=== PATIENT | female | born 1990 | race Caucasian/White ===

== ENCOUNTER 2016-11-03 14:14 | Emergency (ER) | payer OTHER ==
[~2016-11-03] VITALS: Ht 165.1 cm; Wt 85.4 kg
[~2016-11-03 14:14] MED LIST: AMOXICILLIN875 MG PO; DOXYCYCLINE HY100 MG PO; FLEXERIL10 MG PO; LORTAB 5-325 M1 EACH PO; MOTRIN600 MG PO; MOTRIN800 MG PO; NAPROSYN375 MG PO; NAPROSYN500 MG PO; NOHOMEMEDS; PEN-VEE K,VEET500 MG PO; PERCOCET 5/31 TABLET PO; TRAMADOL HCL50 MG PO; ULTRAM50 MG PO
[2016-11-03 14:26] VITALS: BP 134/96
== END 2016-11-03 17:15 | disposition left against medical advice (07) ==
LOC: EME 14:14
DX: R23.8 Other skin changes (principal); Z53.21 Procedure and treatment not carried out due to patient leaving prior to being seen by health care provider

== ENCOUNTER 2016-11-24 04:59 | Emergency (ER) | payer OTHER ==
[~2016-11-24] VITALS: Ht 165.1 cm; Wt 86.9 kg
[2016-11-24] MEDS ORDERED: ANTIFUNGAL30 GM TP (05:23)
[2016-11-24 05:28] VITALS: BP 140/100
[2016-11-24 05:40] LABS: POINT-OF-CARE METER ID UU14100415
== END 2016-11-24 05:28 | disposition home or self-care (01) ==
LOC: EME 04:59
PROVIDERS: Nurse Practitioner Family
DX: B35.3 Tinea pedis (principal); I10 Essential (primary) hypertension; M79.671 Pain in right foot
CPT/HCPCS: 82948; 99281; 99283

== ENCOUNTER 2016-12-12 17:23 | Emergency (ER) | payer OTHER ==
[~2016-12-12] VITALS: Ht 165.1 cm; Wt 86.0 kg
[~2016-12-12 17:23] MED LIST changes: +ANTIFUNGAL30 GM TP
[2016-12-12 18:33] LABS: BASOPHIL COUNT 0.1 K/uL (0-0.1); EOSINOPHIL (%) 4.8 % (0-5); EOSINOPHIL COUNT 0.5 K/uL (0-0.3); HEMATOCRIT 42.6 % (36.0-46.0); IMMATURE GRANULOCYTE (%) 0.3 % (0.0-0.7); LYMPHOCYTE COUNT 2.8 K/uL (1.0-2.8); MCH 30.2 PG (29.0-34.0); MCHC 34.5 G/DL (30.0-36.0); MCV 87.7 FL (83-99); MEAN PLAT.VOLUME 10.6 uM^3 (9.5-12.4); MONOCYTE (%) 6.8 % (3-12); MONOCYTE COUNT 0.7 K/uL (0-0.8); NEUTROPHIL (%) 59.7 % (45-76); PLATELET COUNT 174 K/uL (156-360); RBC DIS.WIDTH-CV 12.2 % (11.8-14.6); RBC DIS.WIDTH-SD 39.2 % (39-53); RED BLOOD COUNT 4.86 M/uL (3.80-5.20); WHITE BLOOD COUNT 10.1 K/uL (4.1-10.2)
[2016-12-12 18:41] LABS: CHLORIDE 105 mEq/L (99-109); POTASSIUM 3.8 mEq/L (3.7-5.4); SODIUM 138 mEq/L (136-147)
[2016-12-12 18:44] LABS: GLUCOSE 78 mg/dL (70-99)
[2016-12-12 18:45] LABS: ANION GAP 8 MEQ/L (2-14)
[2016-12-12 18:46] LABS: TOTAL BILIRUBIN 0.5 mg/dL (0.0-1.0)
[2016-12-12 18:47] LABS: ALKALINE PHOSPHATASE 53 IU/L (3-129); GFR ESTIMATE (CALCULATED) > 59 mL/min/
[2016-12-12 18:48] LABS: UREA NITROGEN (BUN) 9 mg/dL (9-23)
[2016-12-12 19:07] LABS: INTERNAL CONTROL VALID? YES; MONOSPOT (MONONUCLEOSIS SEROL) NEGATIVE
[2016-12-12] MEDS ORDERED: PREDNISONE50 MG PO (20:14)
[2016-12-12] MEDS ORDERED: HYCET 7.5 MG-3473 ML PO (20:15)
[2016-12-12] MEDS ORDERED: CLEOCIN300 MG PO (20:15)
[2016-12-12 20:18] VITALS: BP 123/68
== END 2016-12-12 20:39 | disposition home or self-care (01) ==
LOC: EME 17:23
PROVIDERS: Emergency Medicine
DX: J02.9 Acute pharyngitis, unspecified (principal); J32.3 Chronic sphenoidal sinusitis
CPT/HCPCS: 70491; 80053; 85025; 86308; 99281; 99285; J1100; J1885; J7040

== ENCOUNTER 2016-12-13 22:05 | Emergency (ER) | payer OTHER ==
[~2016-12-13] VITALS: Ht 165.1 cm; Wt 87.3 kg
[~2016-12-13 22:05] MED LIST changes: +CLEOCIN300 MG PO; +HYCET 7.5 MG-3473 ML PO; +PREDNISONE50 MG PO
[2016-12-13 22:56] LABS: HEMATOCRIT 38.5 % (36.0-46.0); MCH 30.2 PG (29.0-34.0); MCHC 34.3 G/DL (30.0-36.0); MCV 88.1 FL (83-99); MEAN PLAT.VOLUME 10.2 uM^3 (9.5-12.4); PLATELET COUNT 199 K/uL (156-360); RBC DIS.WIDTH-CV 12.4 % (11.8-14.6); RBC DIS.WIDTH-SD 40.5 % (39-53); RED BLOOD COUNT 4.37 M/uL (3.80-5.20); WHITE BLOOD COUNT 17.8 K/uL (4.1-10.2)
[2016-12-13 23:23] LABS: ADD MIUA? YES; BILIRUBIN NEGATIVE; BLOOD LARGE; COLOR YELLOW ((YELLOW)); GLUCOSE (STRIP) NEGATIVE; KETONES NEGATIVE; LEUKOCYTES NEGATIVE; NITRITE NEGATIVE; PROTEIN (STRIP) 100; SPECIFIC GRAVITY 1.029 (1.000-1.030); UROBILINOGEN 0.2 MG/DL (0.2-1.0)
[2016-12-13 23:33] LABS: BACTERIA RARE /HPF; EPITHELIAL CELLS 2+ /HPF; MUCUS 2+ /LPF; RED BLOOD CELLS TNTC /HPF (0-5); UCUL ADDED? NO; WHITE BLOOD CELLS 0-5 /HPF (0-5)
[2016-12-14 02:14] VITALS: BP 131/86
== END 2016-12-14 02:18 | disposition home or self-care (01) ==
LOC: EME 22:05
DX: R10.31 Right lower quadrant pain (principal); N93.9 Abnormal uterine and vaginal bleeding, unspecified; N83.202 Unspecified ovarian cyst, left side; F11.20 Opioid dependence, uncomplicated; F17.200 Nicotine dependence, unspecified, uncomplicated
CPT/HCPCS: 74176; 81003; 84702; 85027; 86850; 86900; 86901; 99281; 99285; J1885; J7030

== ENCOUNTER 2016-12-19 00:14 | Emergency (ER) | payer OTHER ==
[~2016-12-19] VITALS: Ht 165.1 cm; Wt 85.8 kg
[2016-12-19 02:37] LABS: BASOPHIL COUNT 0.1 K/uL (0-0.1); EOSINOPHIL COUNT 0.5 K/uL (0-0.3); HEMATOCRIT 38.2 % (36.0-46.0); IMMATURE GRANULOCYTE (%) 0.2 % (0.0-0.7); INSTRUMENT ABS NEUTROPHIL CT 4.2 K/uL; MCH 29.8 PG (29.0-34.0); MCV 87.6 FL (83-99); MEAN PLAT.VOLUME 10.2 uM^3 (9.5-12.4); MONOCYTE (%) 8.2 % (3-12); MONOCYTE COUNT 0.7 K/uL (0-0.8); NEUTROPHIL (%) 49.6 % (45-76); NEUTROPHIL COUNT 4.2 K/uL (1.8-6.4); PLATELET COUNT 176 K/uL (156-360); RBC DIS.WIDTH-CV 11.9 % (11.8-14.6); RBC DIS.WIDTH-SD 38.8 % (39-53); RED BLOOD COUNT 4.36 M/uL (3.80-5.20)
[2016-12-19 02:38] LABS: WHITE BLOOD COUNT 8.5 K/uL (4.1-10.2)
[2016-12-19 02:45] LABS: CHLORIDE 104 mEq/L (99-109); POTASSIUM 3.6 mEq/L (3.7-5.4); SODIUM 137 mEq/L (136-147)
[2016-12-19 02:46] LABS: GLUCOSE 95 mg/dL (70-99)
[2016-12-19 02:48] LABS: ANION GAP 7 MEQ/L (2-14)
[2016-12-19 02:50] LABS: GFR ESTIMATE (CALCULATED) > 59 mL/min/
[2016-12-19 02:51] LABS: UREA NITROGEN (BUN) 11 mg/dL (9-23)
[2016-12-19] MEDS ORDERED: MOUTH SORE15 ML MM (04:29)
[2016-12-19 04:41] VITALS: BP 124/81
== END 2016-12-19 04:42 | disposition home or self-care (01) ==
LOC: EME 00:14
PROVIDERS: Emergency Medicine
DX: J06.9 Acute upper respiratory infection, unspecified (principal); F17.200 Nicotine dependence, unspecified, uncomplicated
CPT/HCPCS: 71020; 80048; 85025; 93005; 99281; 99284; J1100; J1885

== ENCOUNTER 2017-04-17 01:49 | Emergency (ER) | payer OTHER ==
[~2017-04-17] VITALS: Ht 165.1 cm; Wt 79.3 kg
[~2017-04-17 01:49] MED LIST changes: +MOUTH SORE15 ML MM
[2017-04-17 02:30] LABS: ADD MIUA? YES; BILIRUBIN NEGATIVE; BLOOD NEGATIVE; COLOR AMBER ((YELLOW)); GLUCOSE (STRIP) NEGATIVE; KETONES 5; LEUKOCYTES MODERATE; NITRITE NEGATIVE; PROTEIN (STRIP) 30; SPECIFIC GRAVITY 1.024 (1.000-1.030)
[2017-04-17 02:42] LABS: HEMATOCRIT 38.1 % (36.0-46.0); MCH 29.1 PG (29.0-34.0); MCHC 34.6 G/DL (30.0-36.0); MCV 83.9 FL (83-99); MEAN PLAT.VOLUME 10.4 uM^3 (9.5-12.4); PLATELET COUNT 160 K/uL (156-360); RBC DIS.WIDTH-CV 11.6 % (11.8-14.6); RBC DIS.WIDTH-SD 35.4 % (39-53); RED BLOOD COUNT 4.54 M/uL (3.80-5.20); WHITE BLOOD COUNT 10.2 K/uL (4.1-10.2)
[2017-04-17 02:45] LABS: CHLORIDE 106 mEq/L (99-109); POTASSIUM 3.4 mEq/L (3.7-5.4); SODIUM 139 mEq/L (136-147)
[2017-04-17 02:47] LABS: GLUCOSE 84 mg/dL (70-99)
[2017-04-17 02:48] LABS: ANION GAP 10 MEQ/L (2-14)
[2017-04-17 02:50] LABS: BACTERIA 1+ /HPF; CASTS NONE SEEN /LPF; EPITHELIAL CELLS 3+ /HPF; MUCUS 4+ /LPF; RED BLOOD CELLS 0-5 /HPF (0-5); UCUL ADDED? NO
[2017-04-17 02:51] LABS: GFR ESTIMATE (CALCULATED) > 59 mL/min/; UREA NITROGEN (BUN) 7 mg/dL (9-23)
[2017-04-17 02:51] LABS: CRYSTALS NONE SEEN
[2017-04-17 02:59] LABS: QUANTITATIVE HCG 14898.1 MIU/ML
[2017-04-17 03:19] LABS: TOTAL BILIRUBIN 1.1 mg/dL (0.0-1.0)
[2017-04-17 03:20] LABS: ALKALINE PHOSPHATASE 52 IU/L (3-129)
[2017-04-17 03:22] LABS: DIRECT BILIRUBIN 0.4 mg/dL (0.0-0.3)
[2017-04-17 03:23] LABS: LIPASE 12 U/L (1.0-51.0)
[2017-04-17 04:21] VITALS: BP 122/77
== END 2017-04-17 04:23 | disposition home or self-care (01) ==
LOC: EME → EDBD 01:49 → EME 01:49
PROVIDERS: Emergency Medicine
DX: O99.89 Other specified diseases and conditions complicating pregnancy, childbirth and the puerperium (principal); E86.0 Dehydration; O21.9 Vomiting of pregnancy, unspecified; R19.7 Diarrhea, unspecified; Z3A.10 10 weeks gestation of pregnancy; G89.29 Other chronic pain; O99.331 Smoking (tobacco) complicating pregnancy, first trimester; F17.200 Nicotine dependence, unspecified, uncomplicated; Z90.49 Acquired absence of other specified parts of digestive tract
CPT/HCPCS: 76801; 80048; 80076; 81003; 83690; 84702; 85027; 87086; 99281; 99284; J2405; J7030

== ENCOUNTER 2017-04-26 21:28 | Emergency (ER) | payer OTHER ==
[~2017-04-26] VITALS: Ht 165.1 cm; Wt 80.3 kg
[2017-04-26] MEDS ORDERED: ZOFRAN ODT4 MG PO (23:09)
[2017-04-26 23:23] VITALS: BP 153/99
== END 2017-04-26 23:23 | disposition home or self-care (01) ==
LOC: EME 21:28
DX: O21.9 Vomiting of pregnancy, unspecified (principal); O99.321 Drug use complicating pregnancy, first trimester; F11.23 Opioid dependence with withdrawal; Z3A.08 8 weeks gestation of pregnancy; Z87.891 Personal history of nicotine dependence
CPT/HCPCS: 99281; 99283

== ENCOUNTER 2017-05-04 12:58 | Emergency (ER) | payer OTHER ==
[~2017-05-04] VITALS: Ht 165.1 cm; Wt 79.7 kg
[~2017-05-04 12:58] MED LIST changes: +ZOFRAN ODT4 MG PO
[2017-05-04 14:07] LABS: HEMATOCRIT 39.3 % (36.0-46.0); MCH 29.3 PG (29.0-34.0); MCHC 35.4 G/DL (30.0-36.0); MCV 82.9 FL (83-99); MEAN PLAT.VOLUME 10.7 uM^3 (9.5-12.4); PLATELET COUNT 179 K/uL (156-360); RED BLOOD COUNT 4.74 M/uL (3.80-5.20); WHITE BLOOD COUNT 12.2 K/uL (4.1-10.2)
[2017-05-04 15:53] LABS: ADD MIUA? YES; BILIRUBIN NEGATIVE; BLOOD NEGATIVE; COLOR YELLOW ((YELLOW)); GLUCOSE (STRIP) NEGATIVE; KETONES NEGATIVE; LEUKOCYTES SMALL; NITRITE NEGATIVE; PROTEIN (STRIP) 30; SPECIFIC GRAVITY 1.017 (1.000-1.030); UROBILINOGEN 0.2 MG/DL (0.2-1.0)
[2017-05-04 15:59] LABS: BACTERIA RARE /HPF; EPITHELIAL CELLS 1+ /HPF; GRANULAR CASTS 0-5 /LPF; HYALINE CASTS 0-5 /LPF; MUCUS 4+ /LPF; RED BLOOD CELLS 0-5 /HPF (0-5); UCUL ADDED? NO; WHITE BLOOD CELLS 0-5 /HPF (0-5)
[2017-05-04] MEDS ORDERED: PHENERGAN12.5 MG PR (16:41)
[2017-05-04] MEDS ORDERED: ZOFRAN4 MG PO (16:41)
[2017-05-04 17:23] VITALS: BP 113/74
[2017-05-13] MEDS ORDERED: VITAMIN B-625 MG PO (14:40)
[2017-05-13] MEDS ORDERED: SLEEP AID25 M1 PO (14:42)
== END 2017-05-04 17:24 | disposition home or self-care (01) ==
LOC: EME 12:58 → EXP 12:58
DX: O20.0 Threatened abortion (principal); O21.9 Vomiting of pregnancy, unspecified; Z3A.08 8 weeks gestation of pregnancy; Z87.891 Personal history of nicotine dependence
CPT/HCPCS: 76801; 81003; 84702; 85027; 87086; 87493; 87506; 99281; 99284; J2405; J7030

== ENCOUNTER → 2017-05-13 | Outpatient (CLI) | payer OTHER ==
[~2017-05-13] VITALS: Ht 165.1 cm; Wt 79.5 kg
[~2017-05-13] MED LIST changes: +PHENERGAN12.5 MG PR; +SLEEP AID25 M1 PO; +VITAMIN B-625 MG PO; +ZOFRAN4 MG PO
[2017-05-13 14:44] VITALS: BP 145/81
== END | disposition home or self-care (01) ==
LOC: IVINF 05-12 16:30
DX: Z31.82 Encounter for Rh incompatibility status (principal); O20.9 Hemorrhage in early pregnancy, unspecified; Z3A.00 Weeks of gestation of pregnancy not specified
CPT/HCPCS: 96372; J2790

== ENCOUNTER 2017-06-10 11:14 | Emergency (ER) | payer OTHER ==
[~2017-06-10] VITALS: Ht 165.1 cm; Wt 77.2 kg
[2017-06-10 11:48] LABS: HEMATOCRIT 39.3 % (36.0-46.0); MCH 29.3 PG (29.0-34.0); MCHC 34.6 G/DL (30.0-36.0); MCV 84.7 FL (83-99); MEAN PLAT.VOLUME 10.2 uM^3 (9.5-12.4); PLATELET COUNT 180 K/uL (156-360); RBC DIS.WIDTH-CV 13.7 % (11.8-14.6); RBC DIS.WIDTH-SD 42.1 % (39-53); RED BLOOD COUNT 4.64 M/uL (3.80-5.20); WHITE BLOOD COUNT 13.1 K/uL (4.1-10.2)
[2017-06-10 11:57] LABS: CHLORIDE 106 mEq/L (99-109); POTASSIUM 3.7 mEq/L (3.7-5.4); SODIUM 137 mEq/L (136-147)
[2017-06-10 11:59] LABS: GLUCOSE 101 mg/dL (70-99)
[2017-06-10 12:00] LABS: ANION GAP 11 MEQ/L (2-14)
[2017-06-10 12:01] LABS: TOTAL BILIRUBIN 0.6 mg/dL (0.0-1.0)
[2017-06-10 12:02] LABS: ALKALINE PHOSPHATASE 48 IU/L (3-129)
[2017-06-10 12:03] LABS: GFR ESTIMATE (CALCULATED) > 59 mL/min/
[2017-06-10 12:04] LABS: UREA NITROGEN (BUN) 8 mg/dL (9-23)
[2017-06-10 12:34] LABS: QUANTITATIVE HCG 22577.3 MIU/ML
[2017-06-10] MEDS ORDERED: PHENERGAN12.5 MG PR (14:59)
[2017-06-10 15:16] VITALS: BP 129/80
== END 2017-06-10 15:18 | disposition home or self-care (01) ==
LOC: EME 11:14
DX: O21.9 Vomiting of pregnancy, unspecified (principal); O99.321 Drug use complicating pregnancy, first trimester; F11.20 Opioid dependence, uncomplicated; Z3A.13 13 weeks gestation of pregnancy; O99.332 Smoking (tobacco) complicating pregnancy, second trimester; F17.200 Nicotine dependence, unspecified, uncomplicated
CPT/HCPCS: 76801; 80053; 81003; 84702; 85027; 99281; 99284; J2550

== ENCOUNTER 2017-07-11 19:34 | Outpatient (CLI) | payer OTHER ==
[~2017-07-11] VITALS: Ht 165.1 cm; Wt 75.3 kg
[2017-07-11 20:08] VITALS: BP 116/71
[2017-07-11 21:00] LABS: ADD MIUA? YES; BILIRUBIN NEGATIVE; BLOOD NEGATIVE; COLOR AMBER ((YELLOW)); GLUCOSE (STRIP) NEGATIVE; KETONES NEGATIVE; LEUKOCYTES MODERATE; NITRITE NEGATIVE; PROTEIN (STRIP) 100; SPECIFIC GRAVITY 1.024 (1.000-1.030)
[2017-07-11 21:14] LABS: BACTERIA 3+ /HPF; EPITHELIAL CELLS 1+ /HPF; MUCUS 3+ /LPF; RED BLOOD CELLS 0-5 /HPF (0-5); UCUL ADDED? YES
[2017-07-11 21:16] LABS: FINE GRANULAR CASTS 0-5 /LPF
[2017-07-11 21:23] LABS: AMPHETAMINE NEGATIVE (500 ng/mL); BARBITURATES NEGATIVE (200 ng/mL); BENZODIAZEPINES NEGATIVE (150 ng/mL); COCAINE NEGATIVE (150 ng/mL); INTERNAL CONTROLS VALID? YES; METHADONE NEGATIVE (200 ng/mL); METHAMPHETAMINE NEGATIVE (500 ng/mL); OPIATES (MORPHINE) NEGATIVE (100 ng/mL); OXYCODONE NEGATIVE (100 ng/mL); PHENCYCLIDINE NEGATIVE (25 ng/mL); PROPOXYPHENE NEGATIVE (300 ng/mL); THC CANNABINOIDS NEGATIVE (50 ng/mL); TRICYCLIC ANTIDEPRESSANTS NEGATIVE (300 ng/mL)
== END 2017-07-11 23:12 | disposition home or self-care (01) ==
LOC: LDRP-OP → 2WEST 19:36 → LDRP-OP 01-07 11:36
PROVIDERS: Advanced Practice Midwife
DX: O26.899 Other specified pregnancy related conditions, unspecified trimester (principal); R10.9 Unspecified abdominal pain; Z3A.00 Weeks of gestation of pregnancy not specified
CPT/HCPCS: 59025; 76805; 81003; 85460; 87086; G0378

== ENCOUNTER 2017-08-24 09:00 | Outpatient (CLI) | payer OTHER ==
[2017-08-24 09:17] VITALS: BP 102/65
[2017-08-24 10:07] LABS: EOSINOPHIL COUNT 0.4 K/uL (0-0.3); HEMATOCRIT 32.1 % (36.0-46.0); IMMATURE GRANULOCYTE (%) 0.5 % (0.0-0.7); IMMATURE GRANULOCYTE COUNT 0.1 K/uL; INSTRUMENT ABS NEUTROPHIL CT 7.9 K/uL; MCH 28.7 PG (29.0-34.0); MCHC 33.6 G/DL (30.0-36.0); MCV 85.4 FL (83-99); MEAN PLAT.VOLUME 10.4 uM^3 (9.5-12.4); MONOCYTE (%) 5.8 % (3-12); MONOCYTE COUNT 0.6 K/uL (0-0.8); NEUTROPHIL (%) 70.9 % (45-76); NEUTROPHIL COUNT 7.9 K/uL (1.8-6.4); PLATELET COUNT 139 K/uL (156-360); RBC DIS.WIDTH-CV 14.1 % (11.8-14.6); RBC DIS.WIDTH-SD 43.8 % (39-53); RED BLOOD COUNT 3.76 M/uL (3.80-5.20); WHITE BLOOD COUNT 11.1 K/uL (4.1-10.2)
[2017-08-24 10:32] LABS: ADD MIUA? YES; BILIRUBIN NEGATIVE; BLOOD NEGATIVE; COLOR YELLOW ((YELLOW)); GLUCOSE (STRIP) NEGATIVE; KETONES NEGATIVE; LEUKOCYTES MODERATE; NITRITE NEGATIVE; PROTEIN (STRIP) NEGATIVE; SPECIFIC GRAVITY 1.023 (1.000-1.030); UROBILINOGEN 0.2 MG/DL (0.2-1.0)
[2017-08-24 10:45] LABS: AMPHETAMINE NEGATIVE (500 ng/mL); BARBITURATES NEGATIVE (200 ng/mL); BENZODIAZEPINES NEGATIVE (150 ng/mL); COCAINE NEGATIVE (150 ng/mL); INTERNAL CONTROLS VALID? YES; METHADONE NEGATIVE (200 ng/mL); METHAMPHETAMINE NEGATIVE (500 ng/mL); OPIATES (MORPHINE) NEGATIVE (100 ng/mL); OXYCODONE NEGATIVE (100 ng/mL); PHENCYCLIDINE NEGATIVE (25 ng/mL); PROPOXYPHENE NEGATIVE (300 ng/mL); THC CANNABINOIDS NEGATIVE (50 ng/mL); TRICYCLIC ANTIDEPRESSANTS NEGATIVE (300 ng/mL)
[2017-08-24 10:57] LABS: ANTI-HIV (AIDS STAT TEST) NONREACTIVE; INTERNAL CONTROL VALID? YES
[2017-08-24 10:58] LABS: ALKALINE PHOSPHATASE 48 IU/L (3-129); ANION GAP 7 MEQ/L (2-14); CHLORIDE 106 MEQ/L (99-109); GFR ESTIMATE (CALCULATED) > 59 mL/min/; GLUCOSE 84 mg/dL (70-99); LACTATE DEHYDROGENASE 102 IU/L (20-246); POTASSIUM 4.2 MEQ/L (3.7-5.4); SAMPLE HEMOLYSIS CHECK 0; SAMPLE ICTERIC CHECK 0; SAMPLE LIPEMIA CHECK 0; SODIUM 138 MEQ/L (136-147); TOTAL BILIRUBIN 0.3 MG/DL (0.0-1.0); UREA NITROGEN (BUN) 8 mg/dL (9-23); URIC ACID 3.8 mg/dL (3.1-9.2)
[2017-08-24 11:17] LABS: BACTERIA 1+ /HPF; EPITHELIAL CELLS 4+ /HPF; MUCUS 3+ /LPF; RED BLOOD CELLS 0-5 /HPF (0-5); UCUL ADDED? YES
[2017-08-24 11:31] LABS: HBSG INDEX 0.18; HPCA INDEX 0.06
[2017-08-24 11:32] LABS: ANTI-HEPATITIS A VIRUS (IGM) Nonreactive; HAV INDEX 0.14
[2017-08-24 11:33] LABS: ANTI-HEPATITIS B CORE (IGM) Nonreactive; HBC IgM INDEX 0.12; HIV INDEX 0.09; HIV-1/2 AB/AG COMBO Nonreactive
[2017-08-24 11:47] LABS: Estimated Average Glucose 80 mg/dL (70-123)
[2017-08-24 11:55] LABS: TREPONEMA ANTIBODY NEGATIVE (NEGATIVE)
[2017-08-24 12:23] LABS: HEMOGLOBIN A1c (GLYCOHEMOGLOB) 4.4 % HGB (Below 5.7)
[2017-08-24 12:29] VITALS: BP 107/63
[2017-08-24 16:58] LABS: CANDIDA DNA PROBE NEGATIVE; GARDNERELLA DNA PROBE POSITIVE; INTERNAL CONTROL VALID? YES
[2017-08-26 12:31] LABS: CHLAMYDIA TRACHOMATIS NEGATIVE; NEISSERIA GONORRHOEAE NEGATIVE
== END 2017-08-24 14:52 | disposition home or self-care (01) ==
LOC: LDRP-OP 09:00 → 2WEST 09:01 → LDRP-OP 01-07 23:21
PROVIDERS: Advanced Practice Midwife; Obstetrics & Gynecology
DX: O26.892 Other specified pregnancy related conditions, second trimester (principal); R10.9 Unspecified abdominal pain; Z3A.24 24 weeks gestation of pregnancy
CPT/HCPCS: 59025; 76805; 80053; 80074; 81003; 82570; 83036; 83615; 84156; 84550; 85025; 86703; 86762; 86780; 87086; 87480; 87491; 87510; 87591; 87660; G0378

== ENCOUNTER 2017-09-17 19:56 | Outpatient (CLI) | payer OTHER ==
[~2017-09-17 19:56] MED LIST changes: -SUBOXONE 4 MG-1 EACH SL; -SUBOXONE 8 MG-1 EAC2 SL
[2017-09-17 20:07] VITALS: BP 122/65
[2017-09-17] MEDS ORDERED: SUBOXONE 8 MG-1 EAC2 SL (21:33)
[2017-09-17] MEDS ORDERED: SUBOXONE 4 MG-1 EACH SL (21:35)
== END 2017-09-17 21:45 | disposition home or self-care (01) ==
LOC: LDRP-OP → 2WEST 19:59
DX: O26.892 Other specified pregnancy related conditions, second trimester (principal); Z3A.24 24 weeks gestation of pregnancy; O99.332 Smoking (tobacco) complicating pregnancy, second trimester; F17.200 Nicotine dependence, unspecified, uncomplicated; R42 Dizziness and giddiness
CPT/HCPCS: 59025; G0378

== ENCOUNTER → 2017-09-17 | Outpatient (CLI) | payer OTHER ==
[~2017-09-17] VITALS: Ht 165.1 cm; Wt 78.2 kg
[~2017-09-17] MED LIST changes: +SUBOXONE 4 MG-1 EACH SL; +SUBOXONE 8 MG-1 EAC2 SL
[2017-09-17 15:43] VITALS: BP 113/64
== END | disposition home or self-care (01) ==
LOC: IVINF 09:00
DX: Z31.82 Encounter for Rh incompatibility status (principal); Z67.91 Unspecified blood type, Rh negative
CPT/HCPCS: 96372; J2790

== ENCOUNTER 2017-10-20 23:14 | Outpatient (CLI) | payer OTHER ==
[~2017-10-20] VITALS: Ht 165.1 cm; Wt 75.5 kg
[~2017-10-20 23:14] MED LIST changes: +SUBOXONE 4 MG-1 EACH SL; +SUBOXONE 8 MG-1 EAC2 SL
[2017-10-20 23:33] VITALS: BP 114/66
[2017-10-21 00:48] LABS: APPEARANCE SL.HAZY ((CLEAR)); BILIRUBIN NEGATIVE; BLOOD NEGATIVE; COLOR YELLOW ((YELLOW)); GLUCOSE (STRIP) NEGATIVE; KETONES NEGATIVE; LEUKOCYTES MODERATE; NITRITE NEGATIVE; PROTEIN (STRIP) NEGATIVE; SPECIFIC GRAVITY 1.009 (1.000-1.030); UROBILINOGEN 0.2 MG/DL (0.2-1.0)
[2017-10-21 00:56] LABS: BACTERIA 1+ /HPF; EPITHELIAL CELLS 2+ /HPF; MUCUS TRACE /LPF; RED BLOOD CELLS 0-5 /HPF (0-5); UCUL ADDED? NO; WHITE BLOOD CELLS 0-5 /HPF (0-5)
== END 2017-10-21 01:35 | disposition home or self-care (01) ==
LOC: LDRP-OP 23:14 → 2WEST 23:15 → LDRP-OP 04-02 21:54
PROVIDERS: Advanced Practice Midwife
DX: O36.8130 Decreased fetal movements, third trimester, not applicable or unspecified (principal); Z3A.32 32 weeks gestation of pregnancy
CPT/HCPCS: 59025; 81003; G0378

== ENCOUNTER 2017-11-05 17:08 | Outpatient (CLI) | payer OTHER ==
[~2017-11-05] VITALS: Ht 160 cm; Wt 80.0 kg
[2017-11-05 17:41] VITALS: BP 111/63
[2017-11-05 18:25] LABS: APPEARANCE CLOUDY ((CLEAR)); BILIRUBIN SMALL; BLOOD NEGATIVE; COLOR AMBER ((YELLOW)); GLUCOSE (STRIP) NEGATIVE; KETONES NEGATIVE; LEUKOCYTES TRACE; NITRITE NEGATIVE; PROTEIN (STRIP) 100; SPECIFIC GRAVITY 1.028 (1.000-1.030)
[2017-11-05 18:36] VITALS: BP 107/62
[2017-11-05 18:40] LABS: BACTERIA 1+ /HPF; EPITHELIAL CELLS RARE /HPF; MUCUS 3+ /LPF; RED BLOOD CELLS 0-5 /HPF (0-5); UCUL ADDED? NO; WHITE BLOOD CELLS 0-5 /HPF (0-5)
[2017-11-05 18:44] LABS: AMPHETAMINE NEGATIVE (500 ng/mL); BARBITURATES NEGATIVE (200 ng/mL); BENZODIAZEPINES NEGATIVE (150 ng/mL); BUPRENORPHINE PRESUMPTIVE POSITIVE (10 ng/mL); COCAINE NEGATIVE (150 ng/mL); METHADONE NEGATIVE (200 ng/mL); METHAMPHETAMINE NEGATIVE (500 ng/mL); OPIATES (MORPHINE) NEGATIVE (100 ng/mL); OXYCODONE NEGATIVE (100 ng/mL); PHENCYCLIDINE NEGATIVE (25 ng/mL); PROPOXYPHENE NEGATIVE (300 ng/mL); THC CANNABINOIDS NEGATIVE (50 ng/mL); TRICYCLIC ANTIDEPRESSANTS NEGATIVE (300 ng/mL)
== END 2017-11-05 20:30 | disposition home or self-care (01) ==
LOC: LDRP-OP 17:08 → 2WEST 17:09 → LDRP-OP 01-10 02:23
PROVIDERS: Advanced Practice Midwife
DX: O26.893 Other specified pregnancy related conditions, third trimester (principal); Z3A.35 35 weeks gestation of pregnancy; R10.2 Pelvic and perineal pain
CPT/HCPCS: 59025; 81003; G0378

== ENCOUNTER 2017-11-19 08:49 | Outpatient (CLI) | payer OTHER ==
[~2017-11-19] VITALS: Ht 152.4 cm; Wt 79.4 kg
[2017-11-19 09:46] VITALS: BP 111/66
[2017-11-19 10:17] LABS: HEMATOCRIT 30.3 % (36.0-46.0); HEMOGLOBIN 10.4 G/DL (11.9-15.5); MCH 27.8 PG (29.0-34.0); MCHC 34.3 G/DL (30.0-36.0); PLATELET COUNT 209 K/uL (156-360); RBC DIS.WIDTH-CV 13.7 % (11.8-14.6); RBC DIS.WIDTH-SD 40.2 % (39-53); RED BLOOD COUNT 3.74 M/uL (3.80-5.20)
[2017-11-19 10:45] LABS: ALBUMIN 3.3 G/DL (3.2-4.8); ALKALINE PHOSPHATASE 134 IU/L (3-129); ALT (GPT) 6 IU/L (3-49); AST (GOT) 14 IU/L (2-34); CHLORIDE 109 MEQ/L (99-109); CREATININE 0.6 MG/DL (0.6-1.3); GFR ESTIMATE (CALCULATED) > 59 mL/min/; GLUCOSE 87 mg/dL (70-99); POTASSIUM 3.4 MEQ/L (3.7-5.4); SODIUM 137 MEQ/L (136-147); TOTAL BILIRUBIN 0.2 MG/DL (0.0-1.0); TOTAL PROTEIN 5.9 G/DL (6.4-8.3); UREA NITROGEN (BUN) 9 mg/dL (9-23)
[2017-11-19 11:33] LABS: APPEARANCE CLOUDY ((CLEAR)); BILIRUBIN NEGATIVE; BLOOD NEGATIVE; COLOR AMBER ((YELLOW)); GLUCOSE (STRIP) NEGATIVE; KETONES 5; LEUKOCYTES SMALL; NITRITE NEGATIVE; PROTEIN (STRIP) 100; SPECIFIC GRAVITY 1.029 (1.000-1.030)
[2017-11-19 11:48] LABS: RED BLOOD CELLS NONE SEEN /HPF (0-5)
[2017-11-19 11:49] LABS: BACTERIA 1+ /HPF; EPITHELIAL CELLS 2+ /HPF; MUCUS NONE SEEN /LPF
[2017-11-19 12:33] LABS: AMPHETAMINE NEGATIVE (500 ng/mL); BARBITURATES NEGATIVE (200 ng/mL); BENZODIAZEPINES NEGATIVE (150 ng/mL); BUPRENORPHINE PRESUMPTIVE POSITIVE (10 ng/mL); COCAINE NEGATIVE (150 ng/mL); METHADONE NEGATIVE (200 ng/mL); METHAMPHETAMINE NEGATIVE (500 ng/mL); OPIATES (MORPHINE) NEGATIVE (100 ng/mL); OXYCODONE NEGATIVE (100 ng/mL); PHENCYCLIDINE NEGATIVE (25 ng/mL); PROPOXYPHENE NEGATIVE (300 ng/mL); THC CANNABINOIDS NEGATIVE (50 ng/mL); TRICYCLIC ANTIDEPRESSANTS NEGATIVE (300 ng/mL)
== END 2017-11-19 18:45 | disposition home or self-care (01) ==
LOC: EME 08:49 → EDSTATUS 09:16 → LDRP-OP 09:23 → 2WEST 09:24
PROVIDERS: Advanced Practice Midwife
DX: O26.893 Other specified pregnancy related conditions, third trimester (principal); R11.2 Nausea with vomiting, unspecified; M54.9 Dorsalgia, unspecified; H83.8X9 Other specified diseases of inner ear, unspecified ear; R09.81 Nasal congestion; O99.283 Endocrine, nutritional and metabolic diseases complicating pregnancy, third trimester; E87.6 Hypokalemia; O99.323 Drug use complicating pregnancy, third trimester; F11.20 Opioid dependence, uncomplicated; Z3A.37 37 weeks gestation of pregnancy
CPT/HCPCS: 59025; 80053; 81003; 84702; 85027; 87086; G0378; J0571; J2405; J7120

== ENCOUNTER 2017-12-03 07:50 | Inpatient (IN) | payer OTHER ==
[~2017-12-03] VITALS: Ht 165.1 cm; Wt 85.4 kg
[2017-12-03] VITALS (22 sets, daily range): BP systolic 103–138; BP diastolic 53–73
[2017-12-03 09:53] LABS: AMPHETAMINE NEGATIVE (500 ng/mL); BARBITURATES NEGATIVE (200 ng/mL); BENZODIAZEPINES NEGATIVE (150 ng/mL); BUPRENORPHINE PRESUMPTIVE POSITIVE (10 ng/mL); COCAINE NEGATIVE (150 ng/mL); METHADONE NEGATIVE (200 ng/mL); METHAMPHETAMINE NEGATIVE (500 ng/mL); OPIATES (MORPHINE) NEGATIVE (100 ng/mL); OXYCODONE NEGATIVE (100 ng/mL); PHENCYCLIDINE NEGATIVE (25 ng/mL); PROPOXYPHENE NEGATIVE (300 ng/mL); THC CANNABINOIDS NEGATIVE (50 ng/mL); TRICYCLIC ANTIDEPRESSANTS NEGATIVE (300 ng/mL)
[2017-12-03 10:02] LABS: BASOPHIL (%) 0.4 % (0-1); EOSINOPHIL (%) 2.3 % (0-5); EOSINOPHIL COUNT 0.2 K/uL (0-0.3); HEMATOCRIT 26.7 % (36.0-46.0); HEMOGLOBIN 8.7 G/DL (11.9-15.5); IMMATURE GRANULOCYTE (%) 0.5 % (0.0-0.7); LYMPHOCYTE (%) 22.8 % (15-42); LYMPHOCYTE COUNT 1.9 K/uL (1.0-2.8); MCHC 32.6 G/DL (30.0-36.0); MCV 82.9 FL (83-99); MONOCYTE (%) 7.1 % (3-12); MONOCYTE COUNT 0.6 K/uL (0-0.8); NEUTROPHIL (%) 66.9 % (45-76); NEUTROPHIL COUNT 5.5 K/uL (1.8-6.4); PLATELET COUNT 152 K/uL (156-360); RBC DIS.WIDTH-CV 13.8 % (11.8-14.6); RBC DIS.WIDTH-SD 41.3 % (39-53); RED BLOOD COUNT 3.22 M/uL (3.80-5.20); WHITE BLOOD COUNT 8.2 K/uL (4.1-10.2)
[2017-12-03] MEDS ORDERED: ZOFRAN4 MG PO (18:47)
[2017-12-03] MEDS ORDERED: ACYCLOVIR400 MG PO (18:48)
[2017-12-04 00:08] VITALS: BP 118/60
[2017-12-04 01:05] VITALS: BP 123/69
[2017-12-04 06:26] LABS: BASOPHIL (%) 0.4 % (0-1); BASOPHIL COUNT 0.1 K/uL (0-0.1); EOSINOPHIL (%) 1.1 % (0-5); EOSINOPHIL COUNT 0.2 K/uL (0-0.3); HEMATOCRIT 29.3 % (36.0-46.0); HEMOGLOBIN 9.8 G/DL (11.9-15.5); IMMATURE GRANULOCYTE (%) 0.7 % (0.0-0.7); LYMPHOCYTE (%) 17.3 % (15-42); LYMPHOCYTE COUNT 2.3 K/uL (1.0-2.8); MCH 27.3 PG (29.0-34.0); MCHC 33.4 G/DL (30.0-36.0); MCV 81.6 FL (83-99); MONOCYTE (%) 5.9 % (3-12); MONOCYTE COUNT 0.8 K/uL (0-0.8); NEUTROPHIL (%) 74.6 % (45-76); PLATELET COUNT 157 K/uL (156-360); RBC DIS.WIDTH-CV 13.8 % (11.8-14.6); RBC DIS.WIDTH-SD 40.8 % (39-53); RED BLOOD COUNT 3.59 M/uL (3.80-5.20); WHITE BLOOD COUNT 13.4 K/uL (4.1-10.2)
[2017-12-04 11:14] LABS: HEMATOCRIT 28.8 % (36.0-46.0); HEMOGLOBIN 9.6 G/DL (11.9-15.5); MCH 27.3 PG (29.0-34.0); MCHC 33.3 G/DL (30.0-36.0); MCV 81.8 FL (83-99); PLATELET COUNT 158 K/uL (156-360); RBC DIS.WIDTH-SD 41.4 % (39-53); RED BLOOD COUNT 3.52 M/uL (3.80-5.20); WHITE BLOOD COUNT 11.4 K/uL (4.1-10.2)
[2017-12-04 23:04] VITALS: BP 119/75
[2017-12-05 06:58] VITALS: BP 122/67
[2017-12-05] MEDS ORDERED: Tylenol Extra Streng PO (09:15)
[2017-12-05] MEDS ORDERED: IBUPROFEN800 MG PO (09:15)
[2017-12-05 15:23] VITALS: BP 130/87
== END 2017-12-05 17:33 | disposition home or self-care (01) | DRG 774 ==
LOC: LDRP-OP → 2WEST 07:51 → LDRP-OP 08:53 → 2WEST 21:55 → LDRP-OP 01-10 21:41
PROVIDERS: Advanced Practice Midwife
PROC: 10907ZC Drainage of Amniotic Fluid, Therapeutic from Products of Conception, Via Natural or Artificial Opening (ICD-10-PCS; principal; 2017-12-03)
PROC: 3E033VJ Introduction of Other Hormone into Peripheral Vein, Percutaneous Approach (ICD-10-PCS; principal; 2017-12-03)
PROC: 00HU33Z Insertion of Infusion Device into Spinal Canal, Percutaneous Approach (ICD-10-PCS; principal; 2017-12-03)
PROC: 10E0XZZ Delivery of Products of Conception, External Approach (ICD-10-PCS; principal; 2017-12-03)
PROC: 3E0R3BZ Introduction of Anesthetic Agent into Spinal Canal, Percutaneous Approach (ICD-10-PCS; principal; 2017-12-03)
PROC: 3E0P7GC Introduction of Other Therapeutic Substance into Female Reproductive, Via Natural or Artificial Opening (ICD-10-PCS; principal; 2017-12-03)
DX: O99.324 Drug use complicating childbirth (principal); F11.20 Opioid dependence, uncomplicated; O99.02 Anemia complicating childbirth; D62 Acute posthemorrhagic anemia; O26.893 Other specified pregnancy related conditions, third trimester; O98.52 Other viral diseases complicating childbirth; B00.9 Herpesviral infection, unspecified; O99.334 Smoking (tobacco) complicating childbirth; F17.210 Nicotine dependence, cigarettes, uncomplicated; Z67.11 Type A blood, Rh negative; Z3A.39 39 weeks gestation of pregnancy; Z37.0 Single live birth
CPT/HCPCS: 83030; 85025; 85027; 86850; 86870; 86900; 86901; 86905; 86920; C1755; J0571; J2790; J3010; J7120